=== PATIENT | male | born 1930 | race Caucasian/White ===

== ENCOUNTER 2018-11-15 13:19 | Emergency (ER) | payer OTHER ==
[~2018-11-15] VITALS: Ht 172.7 cm; Wt 65.8 kg
[~2018-11-15 13:19] MED LIST: ALBU90OI; ALBU90OI INH; ALEN10 PO; ALEN70 PO; ANDROGEL2.5 GM TD; ASPI325 PO; ATOR10 PO; ATOR20; Antivert25 MG PO; BREO ELLIPTA 11 EACH IH; CETI10 PO; CITA20 PO; Cipro500 MG PO; FINA5 PO; FLUSAL2505 IH; Flagyl500 MG PO; Forteo2.4 ML SC; HYDR-86 PO; HYDR1TAB94 PO; IBUP200; MECL25 PO; MELO7.5 PO; METO25ER PO; METR500 PO; MOM PO; MONT10T PO; MULVITMINF PO; NIAC500ER PO; NIACIN; NITR.4SL SL; Norco 5-325 Ta1 EACH PO; ONDA4ODT MM; SACC250C PO; TAMS.4ER PO; TEMAZEPAM; TRAZ100 PO; VENL37.5ER PO; WARF2.5 PO; WARF5 PO; WARF7.5 PO; Xalatan2.5 ML BOTHEYES; ZOLP5 PO; Zofran Odt4 MG SL; [UNRECOGNIZED DRUG - OTHER] PO; [UNRECOGNIZED DRUG - REMARK]
[2018-11-15] MEDS ORDERED: VOLTAREN100 GM TOP (14:48)
== END 2018-11-15 15:03 | disposition home or self-care (01) ==
LOC: ER 13:19
DX: M54.5 Low back pain (principal); W18.30XA Fall on same level, unspecified, initial encounter; Z88.7 Allergy status to serum and vaccine; Z79.899 Other long term (current) drug therapy; Z79.01 Long term (current) use of anticoagulants
CPT/HCPCS: 72100; 72170; 99283-25